=== PATIENT | female | born 1950 | race Two or more races ===

== ENCOUNTER 2017-11-18 14:02 | Outpatient (CLI) | payer OTHER ==
[~2017-11-18 14:02] MED LIST: NABUMETONE500 MG PO; PERCOCET 5/3251 TAB PO
== END 2017-11-18 14:12 | disposition home or self-care (01) ==
LOC: MAMO-SONO 14:02
DX: Z12.31 Encounter for screening mammogram for malignant neoplasm of breast (principal); Z87.898 Personal history of other specified conditions; N60.11 Diffuse cystic mastopathy of right breast

== ENCOUNTER 2020-06-12 08:45 | Outpatient (CLI) | payer OTHER | END 2020-06-12 08:50 | disposition home or self-care (01) | LOC: SONOGRAMA 08:45 | PROVIDERS: ATTEND Family Medicine Adult Medicine | DX: N17.1 Acute kidney failure with acute cortical necrosis (principal); N18.30 Chronic kidney disease, stage 3 unspecified; I11.9 Hypertensive heart disease without heart failure ==

== ENCOUNTER 2020-06-25 08:15 | Outpatient (CLI) | payer OTHER | END 2020-06-25 08:23 | disposition home or self-care (01) | LOC: MAMO-SONO 08:15 | PROVIDERS: ATTEND Obstetrics & Gynecology | DX: Z12.31 Encounter for screening mammogram for malignant neoplasm of breast (principal); N60.11 Diffuse cystic mastopathy of right breast; N60.12 Diffuse cystic mastopathy of left breast ==

== ENCOUNTER 2021-11-05 09:29 | Outpatient (CLI) | payer OTHER | END 2021-11-05 09:32 | disposition home or self-care (01) | LOC: MAMO-SONO 09:29 | PROVIDERS: ATTEND Internal Medicine | DX: N60.11 Diffuse cystic mastopathy of right breast (principal); N60.12 Diffuse cystic mastopathy of left breast; E03.1 Congenital hypothyroidism without goiter ==

== ENCOUNTER 2021-11-05 10:55 | Outpatient (CLI) | payer OTHER | END 2021-11-05 10:57 | disposition home or self-care (01) | LOC: NUCLEAR 10:55 | PROVIDERS: ATTEND Obstetrics & Gynecology | DX: M81.0 Age-related osteoporosis without current pathological fracture (principal) ==

== ENCOUNTER 2022-01-06 10:04 | Outpatient (CLI) | payer OTHER | END 2022-01-06 10:08 | disposition home or self-care (01) | LOC: RAD 10:04 | PROVIDERS: ATTEND Internal Medicine | DX: M25.562 Pain in left knee (principal) ==

== ENCOUNTER 2022-11-26 09:18 | Outpatient (CLI) | payer OTHER | END 2022-11-26 09:25 | disposition home or self-care (01) | LOC: RAD 09:18 | PROVIDERS: ATTEND Family Medicine | DX: I70.0 Atherosclerosis of aorta (principal); M15.0 Primary generalized (osteo)arthritis ==

== ENCOUNTER 2023-06-16 11:01 | Outpatient (CLI) | payer OTHER | END 2023-06-16 11:11 | disposition home or self-care (01) | LOC: MAMO-SONO 11:01 | PROVIDERS: ATTEND Family Medicine | DX: Z12.31 Encounter for screening mammogram for malignant neoplasm of breast (principal); N60.11 Diffuse cystic mastopathy of right breast; N60.12 Diffuse cystic mastopathy of left breast ==

== ENCOUNTER 2023-09-30 11:35 | Outpatient (CLI) | payer OTHER | END 2023-09-30 11:40 | disposition home or self-care (01) | LOC: RAD 11:35 | PROVIDERS: ATTEND Family Medicine | DX: M12.572 Traumatic arthropathy, left ankle and foot (principal); M25.572 Pain in left ankle and joints of left foot; M54.2 Cervicalgia; M54.50 Low back pain, unspecified ==

== ENCOUNTER 2024-02-16 08:36 | Outpatient (CLI) | payer OTHER | END 2024-02-16 09:00 | disposition home or self-care (01) | LOC: RAD 08:36 | PROVIDERS: ATTEND Family Medicine | DX: M25.562 Pain in left knee (principal); M24.59 Contracture, other specified joint; M24.541 Contracture, right hand; M24.542 Contracture, left hand; M24.50 Contracture, unspecified joint ==

== ENCOUNTER 2024-07-07 09:37 | Outpatient (CLI) | payer OTHER | END 2024-07-07 09:44 | disposition home or self-care (01) | LOC: RAD 09:37 | PROVIDERS: ATTEND Chiropractor | DX: M25.512 Pain in left shoulder (principal) ==

== ENCOUNTER 2024-07-12 09:28 | Outpatient (CLI) | payer OTHER | END 2024-07-12 09:34 | disposition home or self-care (01) | LOC: MAMO-SONO 09:28 | PROVIDERS: ATTEND Obstetrics & Gynecology | DX: N60.11 Diffuse cystic mastopathy of right breast (principal); N60.12 Diffuse cystic mastopathy of left breast; Z12.31 Encounter for screening mammogram for malignant neoplasm of breast ==

== ENCOUNTER → 2024-07-25 13:22 | Outpatient (CLI) | payer OTHER | END | disposition home or self-care (01) | LOC: NUCLEAR 13:15 | DX: M85.80 Other specified disorders of bone density and structure, unspecified site (principal); M81.0 Age-related osteoporosis without current pathological fracture ==

== ENCOUNTER 2025-03-27 10:36 | Outpatient (CLI) | payer OTHER | END 2025-03-27 10:37 | disposition home or self-care (01) | LOC: NUCLEAR 10:36 | DX: I73.9 Peripheral vascular disease, unspecified (principal); I87.2 Venous insufficiency (chronic) (peripheral) ==